=== PATIENT | male | born 1955 | race Caucasian/White ===

== ENCOUNTER 2022-09-17 12:13 | Emergency (ER) | payer OTHER ==
[~2022-09-17] VITALS: Ht 175.3 cm; Wt 70.3 kg
[2022-09-17 12:15] VITALS: BP_SYST 176
--- NOTE | 2022-09-17 12:15 | NUR ---
Patient triaged and placed in waiting room. VSS and patient appears in no acute distress at this time. Accompanied by SELF, awaiting available bed, and MD notified of need for MSE.
--- NOTE | 2022-09-17 12:20 | NUR ---
PT CAME IN FROM HOME C/O HTN CHECKED AT HOME, DENIES QUINN, VISUAL CHANGES, OR DIZZINESS. PT IS AMBULATORY, AAOX4, VSS
--- NOTE | 2022-09-17 12:55 | NUR ---
ER DR. CRUZ EXAMINING PT
[2022-09-17 13:30] VITALS: BP_SYST 176
--- NOTE | 2022-09-17 13:30 | NUR ---
Patient given written and verbal discharge instructions and verbalizes understanding. ER MD discussed with patient the results and treatment provided. Patient in stable condition. ID arm band removed. NO Rx given. Patient educated on pain management and to follow up with PMD. Pain Scale 0/10. Opportunity for questions provided and answered. Medication side effect fact sheet provided.
== END 2022-09-17 13:30 | disposition home or self-care (01) ==
LOC: SED 12:13
DX: I10 Essential (primary) hypertension (principal); F17.210 Nicotine dependence, cigarettes, uncomplicated; Z79.899 Other long term (current) drug therapy
CPT/HCPCS: 99281

== ENCOUNTER 2024-05-29 18:30 | Emergency (ER) | payer BC, OTHER ==
[~2024-05-29] VITALS: Ht 167.6 cm; Wt 63.5 kg
[2024-05-29 18:40] VITALS: BP_SYST 121; PULSE 99; RESP 20; TEMP 98.7; O2SAT 97
[2024-05-29 19:21] LABS: BASOPHILS # (AUTO) 0.1 K/uL (0.0-0.2); BASOPHILS % (AUTO) 0.7 % (0.0-2.0); EOSINOPHILS # (AUTO) 0.1 K/uL (0.0-0.4); EOSINOPHILS % (AUTO) 0.7 % (0.0-4.0); HEMOGLOBIN 12.9 g/dL (14.0-18.0); LYMPHOCYTES # (AUTO) 1.1 K/uL (1.0-5.5); LYMPHOCYTES % (AUTO) 10.8 % (20.5-51.5); MEAN CORPUSCULAR HEMOGLOBIN 32 pg (27-31); MEAN CORPUSCULAR HGB CONC 35 % (32-36); MEAN CORPUSCULAR VOLUME 91 fL (79.0-98.0); MONOCYTES # (AUTO) 0.5 K/uL (0.0-1.0); NEUTROPHILS # (AUTO) 8.1 K/uL (1.8-7.7); NEUTROPHILS % (AUTO) 82.8 % (40.0-70.0); PLATELET COUNT (AUTO) 187 K/uL (130-430); RED BLOOD CELL COUNT(AUTO) 4.09 MIL/uL (4.2-6.2); RED CELL DISTRIBUTION WIDTH 13.2 % (9.0-15.0); WHITE BLOOD COUNT (AUTO) 9.7 K/uL (4.8-10.8)
[2024-05-29 19:33] LABS: INR 1.1 (0.80-1.20); PROTHROMBIN TIME 11.6 SECS (9.5-12.5)
[2024-05-29 19:37] LABS: ALBUMIN 4.2 g/dL (3.4-4.8); BILIRUBIN,DIRECT 0.1 mg/dL (0.0-0.3); CALCIUM 9.4 mg/dL (8.4-11.0); CREATININE 1.92 mg/dL (0.55-1.30); TOTAL BILIRUBIN 0.3 mg/dL (0.0-1.0); TOTAL PROTEIN, SERUM 7.5 g/dL (6.4-8.3)
[2024-05-29] MEDS ORDERED: HYDR-3917 PO (22:16)
[2024-05-29 22:27] VITALS: BP_SYST 142; PULSE 79; RESP 16; TEMP 98; O2SAT 97
[2024-05-30] MEDS ORDERED: TRAM50TA2 PO (15:10)
== END 2024-05-29 22:27 | disposition home or self-care (01) ==
LOC: SED 18:30
DX: S16.1XXA Strain of muscle, fascia and tendon at neck level, initial encounter (principal); S09.90XA Unspecified injury of head, initial encounter; R42 Dizziness and giddiness; R11.0 Nausea; I10 Essential (primary) hypertension; Z79.899 Other long term (current) drug therapy; W22.8XXA Striking against or struck by other objects, initial encounter; Y93.89 Activity, other specified; Y92.89 Other specified places as the place of occurrence of the external cause; Y99.8 Other external cause status
CPT/HCPCS: 36415; 70450-TC; 72125-TC; 80048; 80076; 82550; 85025; 85610; 85730; 99284